=== PATIENT | male | born 1955 | race Caucasian/White ===

== ENCOUNTER 2019-09-12 13:04 | Inpatient (IN) ==
[2019-09-12] MEDS ORDERED: NORMAL SALINE 1,000 ML IV ONE (13:20)
[2019-09-12] MEDS ORDERED: PROCHLORPERAZINE EDISYLATE 5 MG/ML VIAL IV ONE (13:20)
--- NOTE | 2019-09-12 13:21 | ERNOTE ---
Medical Problem HPI - Narrative Date of Service: 09/12/19 - General Chief Complaint: Nausea/Vomiting Time Seen by Provider: 09/12/19 13:13 Source: patient, RN notes reviewed, old records Exam Limitations: intoxication - Immun/Allergies/Home Medications Immunizations: IMMUNIZATION HX Immunizations Up to Date Yes History of Influenza Vaccine No Hx Pneumococcal Vaccination No Allergies/Adverse Reactions: Allergies lorazepam [From Ativan] Adverse Reaction (Verified 08/04/19 11:01) Runs around [place] naked Home Medications: HOME MEDICATIONS Sertraline HCl [Zoloft] 100 mg PO DAILY 03/20/19 [Last Taken Unknown] Omeprazole [Prilosec] 20 mg PO DAILY #30 cap 08/04/19 [Last Taken Unknown] Ondansetron [Zofran Odt] 4 mg PO Q8H PRN #20 tab 08/04/19 [Last Taken Unknown] Potassium Chloride 8 meq PO DAILY #30 cap 08/04/19 [Last Taken Unknown] - History of Present History Narrative: Omar is a 63-year-old male brought to the emergency department from home by his mother for vomiting. This has been going on for 2 or 3 days. He has a history of alcoholism and reports that he has been drinking today. He reports that he usually drinks 12-18 beers per day. He has a history of esophageal varices. He vomited on the floor in the waiting room on arrival. This was brown in color. He reports that he had tried to drink tea this morning. He has been seen several times in the past few months for similar complaints. Review of Systems - Narrative Narrative: Unable to obtain ROS due to patient condition and intoxication Medical History (Last Reviewed 09/12/19 @ 14:45 by Sana Sapp NP) Alcoholic Esophageal varices Surgical History: Surgical History (Last Reviewed 09/12/19 @ 14:45 by Sana Sapp NP) H/O shoulder surgery H/O wisdom tooth extraction History of hip surgery Family History: Family History (Last Reviewed 09/12/19 @ 14:45 by Sana Sapp NP) Other No pertinent family history Social History: (Last Reviewed 09/12/19 @ 14:45 by Sana Sapp NP) Tobacco: Smoking Status: Never smoker Alcohol: alcohol intake: current Alcohol type: beer, wine alcohol intake frequency: 3 or more drinks per day Substance Use: substance use type: does not use Physical Exam - Physical Exam General Appearance: Present: alert, moderate distress, thin Head Exam: Present: normal inspection, no evidence of injury Eye Exam: Other: bilateral - Nystagmus present, no scleral icterus Ears, Nose, Throat: Present: normal except -, dry mucous membranes Neck: Present: normal inspection, nontender, supple Respiratory: Present: no respiratory distress, normal breath sounds, no accessory muscle use, lungs clear Cardiovascular/Chest: Present: no murmur, normal peripheral pulses, tachycardia Gastrointestinal/Abdominal: Present: soft, tenderness - diffuse, distended - bloated appearance Extremity Exam: Present: normal inspection, no edema Neurological Exam: Present: alert, other - tremors present. Absent: oriented, normal mood/affect Skin Exam: Present: normal color, warm/dry Progress - Results and Orders Patient's Lab Results:: I have reviewed the patient's lab results. - Vital Signs Patient's Vital Signs:: I have reviewed the patient's vital signs. Vital Signs: Vital Signs 09/12/19 13:08 Temperature 37.1 C Pulse Rate 118 H Respiratory Rate 18 Blood Pressure 155/116 H O2 Sat by Pulse Oximetry 98 - EKG EKG #1 EKG: other - Sinus tach EKG read: Reviewed by me - X-Ray X-Ray #1 X-Ray: abdomen Interpretation: Reviewed by me X-ray Comments: No acute intra-abdominal findings - Progress/Reassessment Chief Complaint: Nausea/Vomiting Progress:: Unchanged Plan - Plan Plan: The patient was initially given IV Compazine for his vomiting. He continued to vomit and was given Zofran. This seems to have helped. He has also been given a liter of normal saline. He was found to have a potassium of 2.1 and was given a potassium rider. His magnesium is 0 and he is currently receiving an infusion of 2 g of magnesium sulfate. His hemoglobin is 9.1 today. This was 14 when he was here just over a month ago. He denies having any neelima bleeding related to his esophageal varices. His liver function tests are within normal as is his ammonia level. Dr. Esquivel was contacted for admission. She agreed to admit the patient to [facility] on telemetry. Departure Clinical Impression: Hypokalemia, Hypomagnesemia with secondary hypocalcemia Intractable vomiting Qualifiers: Vomiting type: unspecified Nausea presence: with nausea Qualified Code(s): R11.2 - Nausea with vomiting, unspecified Alcoholic gastritis Qualifiers: Chronicity: unspecified Gastritis bleeding: presence of bleeding unspecified Qualified Code(s): K29.20 - Alcoholic gastritis without bleeding - Departure Disposition: Still a patient Condition: Serious Referrals: Gregg Green DO [Non Staff Physicians] -
[2019-09-12 13:57] LABS: Hematocrit 27.7 % (42.0-52.0); Hemoglobin 9.1 gm/dL (13.5-18.0); Mean Cell Volume 90.5 fl (78-100); Mean Corpuscular Hemoglobin 29.7 pg (27-31); Mean Corpuscular Hgb Conc 32.9 g/dl (32-36); Mean Platelet Volume 8.2 fl (8-11.3); Neutrophil # 4.2 K/mm3 (1.3-6.0); Platelet Count 260 K/mm3 (150-450); Red Blood Count 3.06 M/mm3 (4.7-6.0); Red Cell Distribution Width 15.8 % (11.5-14.0); White Blood Count 4.8 K/mm3 (4.0-10.5)
[2019-09-12 14:09] LABS: Albumin * 2.7 gm/dl (3.4-5.0); Anion Gap 22.5 mmol/L (6.8-13.8); BUN/Creatinine Ratio 5.9 (9.0-21.6); Bilirubin, Total 0.4 mg/dL (0.0-1.1); Ca. Corrected For Albumin 6.7 mg/dL (8.4-10.2); Carbon Dioxide 15.6 mmol/L (24-32.6); Total Protein 5.6 gm/dL (6.2-8.2)
[2019-09-12 14:15] LABS: Potassium 2.1 mmol/L (3.4-4.6)
[2019-09-12] MEDS ORDERED: POTASSIUM CHLORIDE IN WATER 100 ML IV ONE (14:19)
[2019-09-12] MEDS ORDERED: ONDANSETRON HCL/PF 2 MG/ML VIAL IV ONE (14:51)
[2019-09-12] MEDS ORDERED: MAGNESIUM SULFATE IN WATER 50 ML IV ONE ×2 (14:58→17:15)
[2019-09-12 15:32] LABS: Urine Bilirubin Negative (NEGATIVE); Urine Ketone 50 mg/dL (NEGATIVE); Urine Nitrite Negative (NEGATIVE); Urine Protein 15 mg/dL (NEGATIVE); Urine Specific Gravity 1.025 SP.GR. (1.005-1.030); Urine Urobilinogen Normal (NORMAL)
[2019-09-12 15:45] LABS: Cocaine Ur Negative (NEGATIVE); Urine Barbiturate Negative (NEGATIVE); Urine Benzodiazepines Negative (NEGATIVE); Urine Opiates Negative (NEGATIVE); Urine PCP Negative (NEGATIVE); Urine THC Negative (NEGATIVE)
[2019-09-12 15:47] LABS: Urine Appearance Clear (CLEAR); Urine Bacteria None Seen; Urine Blood 5 /ul (NEGATIVE); Urine Color Yellow; Urine RBC None Seen /hpf (0-5); Urine WBC None Seen /hpf (0-5)
--- NOTE | 2019-09-12 15:52 | HP ---
Chief Complaint - Chief Complaint Date of Service: 09/12/19 Time of Service: 15:22 Chief Complaint: Intractable vomiting x2 days History of Present Illness: 63-year-old male with a past medical history of alcohol abuse, esophageal monie ices presents from home with complaints of intractable vomiting x2 days. He states he drinks 9 beers daily and wine on top of that. He is not able to quantify the amount of wine. He states his last drink of beer was this morning around 9 or 10 AM. He has been vomiting brown liquid. He has minimal poor oral intake because he supplements food with alcohol. He lives with his mom. In the emergency department he is found to be tachycardic with heart rate of 118, sodium of 147, potassium of 2.1, magnesium of 0, hemoglobin of 9.1, hematocrit of 27.9 (last hemoglobin in August 2019 was 14.9, hematocrit was 43.3) albumin of 2.7, and abdominal x-ray showed no acute process. He received 1 rider of potassium chloride in the emergency department, 1 L of IV fluids and Compazine. He will get 2 g of magnesium sulfate while in the ER. He is being admitted for hypomagnesemia, hypokalemia, intractable vomiting, and alcoholic gastritis. Medical History (Last Reviewed 09/12/19 @ 14:45 by Sana Sapp NP) Alcoholic Esophageal varices Surgical History: Surgical History (Last Reviewed 09/12/19 @ 14:45 by Sana Sapp NP) H/O shoulder surgery H/O wisdom tooth extraction History of hip surgery Family History: Family History (Last Reviewed 09/12/19 @ 14:45 by Sana Sapp NP) Other No pertinent family history Social History: (Last Reviewed 09/12/19 @ 14:45 by Sana Sapp NP) Tobacco: Smoking Status: Never smoker Alcohol: alcohol intake: current Alcohol type: beer, wine alcohol intake frequency: 3 or more drinks per day Substance Use: substance use type: does not use Review Of Systems (GEN) - Review of Systems Generalized/Overall Review: Present: Chills. Absent: Fever Respiratory: Present: Shortness of Breath Cardiac: Present: Chest Pain Abdominal: Present: Nausea, Vomiting, Abdominal Pain - Right upper quadrant, left upper quadrant and epigastric Musculoskeletal: Present: Back Pain Misc: All systems neg except as marked Immunizations: IMMUNIZATION HX Immunizations Up to Date Yes History of Influenza Vaccine No Hx Pneumococcal Vaccination No Allergies/Adverse Reactions: Allergies Allergy/AdvReac Type Severity Reaction Status Date / Time lorazepam [From Ativan] AdvReac Verified 08/04/19 11:01 Home Medications: HOME MEDICATIONS Sertraline HCl [Zoloft] 100 mg PO DAILY 03/20/19 [Last Taken Unknown] Omeprazole [Prilosec] 20 mg PO DAILY #30 cap 08/04/19 [Last Taken Unknown] Ondansetron [Zofran Odt] 4 mg PO Q8H PRN #20 tab 08/04/19 [Last Taken Unknown] Potassium Chloride 8 meq PO DAILY #30 cap 08/04/19 [Last Taken Unknown] Exam - Exam Vital Signs: Vital Signs - Last Taken Temp 37.1 C 09/12/19 13:08 Pulse 110 H 09/12/19 13:59 Resp 15 09/12/19 13:59 BP 123/76 09/12/19 13:59 Pulse Ox 95 09/12/19 13:59 Constitutional: Present: Alert, Cooperative, Well developed, Well nourished, Middle aged ENT Exam: Present: hearing grossly normal Eye Exam: bilateral eye: normal inspection, PERRL Neck: Present: non-tender, supple. Absent: normal inspection, lymphadenopathy (L) Back Exam: Present: normal inspection, no CVA tenderness, no vertebral tenderness Respiratory: Present: lungs clear, no respiratory distress, no accessory muscle use, No wheezing. Absent: crackles, rhonchi Cardiovascular/Chest: Present: normal peripheral pulses, no murmur, tachycardia Peripheral Pulses: dorsalis-pedis (R): 1+, dorsalis-pedis (L): 1+ Abdomen: Present: Normal bowel sounds, soft, tender - Epigastric, right upper quadrant and left upper quadrant Extremity: Present: no pedal edema Skin Exam: Present: normal color, warm/dry Neurologic: Present: alert, normal mood/affect Appearance: Present: appropriate appearance, appropriate insight Eye contact: Present: cooperative Thoughts: Present: normal thought pattern, normal mood /affect Diagnostic Studies: Abnormal Lab Results 09/12/19 09/12/19 09/12/19 Range/Units 13:52 13:52 13:52 RBC 3.06 L (4.7-6.0) M/mm3 Hgb 9.1 L (13.5-18.0) gm/dL Hct 27.7 L (42.0-52.0) % RDW 15.8 H (11.5-14.0) % Neutrophils % 86.0 H (42-75.0) % Lymphocytes % 6.8 L (20-51) % Lymphocytes # 0.33 L (1.5-3.5) k/mm3 Sodium 147 H (132-142) mmol/L Plasma Sodium 147 H (130-142) mmol/L Potassium 2.1 L* D (3.4-4.6) mmol/L Chloride 111 H (97-106) mmol/L Carbon Dioxide 15.6 L (24-32.6) mmol/L Anion Gap 22.5 H (6.8-13.8) mmol/L BUN 4 L D (6-23) mg/dL BUN/Creatinine Ratio 5.9 L (9.0-21.6) Calcium 6.0 L (7.9-10.9) mg/dL Calcium Adj for Albumin 6.7 L (8.4-10.2) mg/dL Magnesium 0.0 L (1.2-2.8) mg/dL ALT 14 L (19-67) U/L Total Protein 5.6 L (6.2-8.2) gm/dL Albumin 2.7 L (3.4-5.0) gm/dl Lipase 63 L (73-393) U/L Ethyl Alcohol 89.0 H (0.0-10.0) mg/dL Laboratory Results WBC 4.8 K/mm3 (4.0-10.5) 09/12/19 13:52 RBC 3.06 M/mm3 (4.7-6.0) L 09/12/19 13:52 Hgb 9.1 gm/dL (13.5-18.0) L 09/12/19 13:52 Hct 27.7 % (42.0-52.0) L 09/12/19 13:52 MCV 90.5 fl (78-100) 09/12/19 13:52 MCH 29.7 pg (27-31) 09/12/19 13:52 MCHC 32.9 g/dl (32-36) 09/12/19 13:52 RDW 15.8 % (11.5-14.0) H 09/12/19 13:52 Plt Count 260 K/mm3 (150-450) 09/12/19 13:52 MPV 8.2 fl (8-11.3) 09/12/19 13:52 Immature Gran % (Auto) 0.20 % (0.001-0.429) 09/12/19 13:52 Immature Gran # (Auto) 0.01 K/mm3 (0.000-0.0310) 09/12/19 13:52 Neutrophils % 86.0 % (42-75.0) H 09/12/19 13:52 Lymphocytes % 6.8 % (20-51) L 09/12/19 13:52 Monocytes % 6.4 % (0.0-9) 09/12/19 13:52 Eosinophils % 0.0 % (0.0-3.0) 09/12/19 13:52 Basophils % 0.6 % (0.0-1.0) 09/12/19 13:52 Nucleated RBC % 0.0 k/mm3 (0-1) 09/12/19 13:52 Neutrophils # 4.2 K/mm3 (1.3-6.0) 09/12/19 13:52 Lymphocytes # 0.33 k/mm3 (1.5-3.5) L 09/12/19 13:52 Monocytes # 0.3 k/mm3 (0.0-1.0) 09/12/19 13:52 Eosinophils # 0.0 k/mm3 (0.0-0.7) 09/12/19 13:52 Absolute Basophils 0.0 k/mm3 (0.0-0.1) 09/12/19 13:52 Sodium 147 mmol/L (132-142) H 09/12/19 13:52 Plasma Sodium 147 mmol/L (130-142) H 09/12/19 13:52 Potassium 2.1 mmol/L (3.4-4.6) L* D 09/12/19 13:52 Chloride 111 mmol/L (97-106) H 09/12/19 13:52 Carbon Dioxide 15.6 mmol/L (24-32.6) L 09/12/19 13:52 Anion Gap 22.5 mmol/L (6.8-13.8) H 09/12/19 13:52 BUN 4 mg/dL (6-23) L D 09/12/19 13:52 Creatinine 0.68 mg/dL (0.4-1.4) 09/12/19 13:52 Est GFR (Non-Af Amer) 126 mL/min (60-130) D 09/12/19 13:52 BUN/Creatinine Ratio 5.9 (9.0-21.6) L 09/12/19 13:52 Random Glucose 89 mg/dL (70-110) 09/12/19 13:52 Calcium 6.0 mg/dL (7.9-10.9) L 09/12/19 13:52 Calcium Adj for Albumin 6.7 mg/dL (8.4-10.2) L 09/12/19 13:52 Magnesium 0.0 mg/dL (1.2-2.8) L 09/12/19 13:52 Total Bilirubin 0.4 mg/dL (0.0-1.1) 09/12/19 13:52 AST 31 U/L (0-48) 09/12/19 13:52 ALT 14 U/L (19-67) L 09/12/19 13:52 Alkaline Phosphatase 63 U/L (50-170) 09/12/19 13:52 Ammonia 22.0 mcmol/L (11-35) 09/12/19 14:38 Total Protein 5.6 gm/dL (6.2-8.2) L 09/12/19 13:52 Albumin 2.7 gm/dl (3.4-5.0) L 09/12/19 13:52 Amylase 57 U/L (25-115) 09/12/19 13:52 Lipase 63 U/L (73-393) L 09/12/19 13:52 Ethyl Alcohol 89.0 mg/dL (0.0-10.0) H 09/12/19 13:52 Assessment/Plan - Narrative Narrative: 63-year-old male with a past medical history of alcohol abuse, esophageal varices presents from home with complaints of intractable vomiting x2 days. He states he drinks 9 beers daily and wine on top of that. He is not able to quantify the amount of wine. He states his last drink of beer was this morning around 9 or 10 AM. He has been vomiting brown liquid. He has minimal poor oral intake because he supplements food with alcohol. He lives with his mom. In the emergency department he is found to be tachycardic with heart rate of 118, sodium of 147, potassium of 2.1, magnesium of 0, hemoglobin of 9.1, hematocrit of 27.9 (last hemoglobin in August 2019 was 14.9, hematocrit was 43.3) albumin of 2.7, and abdominal x-ray showed no acute process. He received 1 rider of potassium chloride in the emergency department, 1 L of IV fluids and Compazine. He will get 2 g of magnesium sulfate while in the ER. He is being admitted for hypomagnesemia, hypokalemia, intractable vomiting, and alcoholic gastritis. Plan #1 replete magnesium as needed. He will likely need 4-8 g in the next 24 hours. #2 replete potassium as needed #3 CBC and CMP in the morning #4 Keep n.p.o. until nausea and vomiting have improved #5 monitor for alcohol withdrawal - Assessment/Plan (1) Intractable vomiting Problem: Acute Qualifiers: Vomiting type: unspecified Nausea presence: with nausea Qualified Code(s): R11.2 - Nausea with vomiting, unspecified (2) Alcoholic gastritis Problem: Acute Qualifiers: Chronicity: unspecified Gastritis bleeding: presence of bleeding unspecified Qualified Code(s): K29.20 - Alcoholic gastritis without bleeding (3) Hypokalemia Problem: Acute (4) Hypomagnesemia with secondary hypocalcemia Problem: Acute
[2019-09-12] MEDS: chlordiazePOXIDE HCL 25 MG CAPSULE PO SCH ×2 (17:13→23:05)
[2019-09-12] MEDS: POTASSIUM CHLORIDE IN WATER 100 ML IV SCH ×4 (17:34→20:56)
[2019-09-12] MEDS: ONDANSETRON 4 MG TAB.RAPDIS PO PRN (18:06)
[2019-09-13] MEDS: ONDANSETRON 4 MG TAB.RAPDIS PO PRN (02:49)
[2019-09-13] MEDS: chlordiazePOXIDE HCL 25 MG CAPSULE PO SCH ×2 (04:57→10:21)
[2019-09-13 06:35] LABS: Hemoglobin 14.6 gm/dL (13.5-18.0); Mean Cell Volume 89.6 fl (78-100); Mean Corpuscular Hemoglobin 29.1 pg (27-31); Mean Corpuscular Hgb Conc 32.4 g/dl (32-36); Mean Platelet Volume 8.4 fl (8-11.3); Neutrophil # 5.9 K/mm3 (1.3-6.0); Neutrophil % 76.2 % (42-75.0); Platelet Count 407 K/mm3 (150-450); Red Blood Count 5.02 M/mm3 (4.7-6.0); Red Cell Distribution Width 15.9 % (11.5-14.0); White Blood Count 7.8 K/mm3 (4.0-10.5)
[2019-09-13 06:46] LABS: Albumin * 4.1 gm/dl (3.4-5.0); Anion Gap 14.2 mmol/L (6.8-13.8); BUN/Creatinine Ratio 5.1 (9.0-21.6); Bilirubin, Total 1.4 mg/dL (0.0-1.1); Ca. Corrected For Albumin 8.9 mg/dL (8.4-10.2); Calcium * 9.3 mg/dL (7.9-10.9); Carbon Dioxide 27.5 mmol/L (24-32.6); Magnesium 2.6 mg/dL (1.2-2.8); Potassium 3.7 mmol/L (3.4-4.6); Total Protein 8.8 gm/dL (6.2-8.2)
[2019-09-13] MEDS ORDERED: LISINOPRIL 10 MG TABLET PO SCH (10:15)
--- NOTE | 2019-09-13 11:26 | DS ---
(1) Intractable vomiting Problem: Acute Qualifiers: Vomiting type: unspecified Nausea presence: with nausea Qualified Code(s): R11.2 - Nausea with vomiting, unspecified (2) Alcoholic gastritis Problem: Acute Qualifiers: Chronicity: unspecified Gastritis bleeding: presence of bleeding unspecified Qualified Code(s): K29.20 - Alcoholic gastritis without bleeding (3) Hypokalemia Problem: Acute (4) Hypomagnesemia with secondary hypocalcemia Problem: Acute (5) Alcohol withdrawal Problem: Acute Qualifiers: Complication of substance-induced condition: uncomplicated Qualified Code(s): F10.230 - Alcohol dependence with withdrawal, uncomplicated (6) Alcohol abuse Problem: Chronic Hospital Course: 63-year-old male with a past medical history of alcohol abuse, esophageal varices presents from home with complaints of intractable vomiting x2 days. He states he drinks 9 beers daily and wine on top of that. He is not able to quantify the amount of wine. He states his last drink of beer was this morning around 9 or 10 AM. He has been vomiting brown liquid. He has minimal poor oral intake because he supplements food with alcohol. He lives with his mom. In the emergency department he is found to be tachycardic with heart rate of 118, sodium of 147, potassium of 2.1, magnesium of 0, hemoglobin of 9.1, hematocrit of 27.9 (last hemoglobin in August 2019 was 14.9, hematocrit was 43.3) albumin of 2.7, and abdominal x-ray showed no acute process. He received 1 rider of potass ium chloride in the emergency department, 1 L of IV fluids and Compazine. He will get 2 g of magnesium sulfate while in the ER. He is being admitted for hypomagnesemia, hypokalemia, intractable vomiting, and alcoholic gastritis. With repletion, his potassium improved to 3.7 and magnesium improved to 2.6. His CIWA score dropped from 14 to 2 with Librium. He is tolerating oral diet. He has no more nausea and vomiting. He is stable to be discharged home today because he improved faster than anticipated. He will need to follow-up with his primary care physician within 1 week. Advised on the importance of reducing alcohol intake. Procedures Performed: none Results and Findings: Lab Pending Results 09/12/19 13:52: WBC 4.8, RBC 3.06 L, Hgb 9.1 L, Hct 27.7 L, MCV 90.5, MCH 29.7, MCHC 32.9, RDW 15.8 H, Plt Count 260, MPV 8.2, Immature Gran % (Auto) 0.20, Immature Gran # (Auto) 0.01, Neutrophils % 86.0 H, Lymphocytes % 6.8 L, Monocytes % 6.4, Eosinophils % 0.0, Basophils % 0.6, Nucleated RBC % 0.0, Neutrophils # 4.2, Lymphocytes # 0.33 L, Monocytes # 0.3, Eosinophils # 0.0, Absolute Basophils 0.0 09/12/19 13:52: Sodium 147 H, Plasma Sodium 147 H, Potassium 2.1 L* D, Chloride 111 H, Carbon Dioxide 15.6 L, Anion Gap 22.5 H, BUN 4 L D, Creatinine 0.68, Est GFR (Non-Af Amer) 126 D, BUN/Creatinine Ratio 5.9 L, Random Glucose 89, Calcium 6.0 L, Calcium Adj for Albumin 6.7 L, Total Bilirubin 0.4, AST 31, ALT 14 L, Alkaline Phosphatase 63, Total Protein 5.6 L, Albumin 2.7 L, Amylase 57, Lipase 63 L, Ethyl Alcohol 89.0 H 09/12/19 13:52: Magnesium 0.0 L 09/12/19 14:38: Ammonia 22.0 09/12/19 15:18: Urine Color Yellow, Urine Appearance Clear, Urine pH 6.0, Ur Specific [place] 1.025, Urine Protein 15 H, Urine Glucose (UA) Negative, Urine Ketones 50, Urine Blood 5 H, Urine Nitrate Negative, Urine Bilirubin Negative, Prot Sulfosalicylic Acd Negative, Urine Urobilinogen Normal, Ur Leukocyte Esterase Negative, Urine RBC None seen, Urine WBC None seen, Ur Epithelial Cells None seen, Urine Bacteria None seen, Urine Culture Comments No culture indicated 09/12/19 15:18: Urine Opiates Screen Negative, Barbiturate Screen Negative, Ur Phencyclidine Scrn Negative, Urine Amphetamine Negative, U Benzodiazepines Scrn Negative, Urine Cocaine Screen Negative, Urine Marijuana (THC) Negative 09/13/19 06:28: Sodium 138, Plasma Sodium 138, Potassium 3.7 D, Chloride 100, Carbon Dioxide 27.5, Anion Gap 14.2 H, BUN 5 L, Creatinine 0.98, Est GFR (Non-Af Amer) 83 D, BUN/Creatinine Ratio 5.1 L, Random Glucose 92, Calcium 9.3, Calcium Adj for Albumin 8.9, Magnesium 2.6, Total Bilirubin 1.4 H, AST 49 H, ALT 28, Alkaline Phosphatase 97, Total Protein 8.8 H, Albumin 4.1 09/13/19 06:28: WBC 7.8 D, RBC 5.02, Hgb 14.6, Hct 45.0, MCV 89.6, MCH 29.1, MCHC 32.4, RDW 15.9 H, Plt Count 407, MPV 8.4, Immature Gran % (Auto) 0.30, Immature Gran # (Auto) 0.02, Neutrophils % 76.2 H, Lymphocytes % 12.7 L, Monocytes % 10.0 H, Eosinophils % 0.5, Basophils % 0.3, Nucleated RBC % 0.0, Neutrophils # 5.9, Lymphocytes # 0.99 L, Monocytes # 0.8, Eosinophils # 0.0, Absolute Basophils 0.0 Discharge Location: Home Disposition: Home self-care Condition: Stable Discharge Activity: Activity as tolerated Discharge Diet: General/regular food Referrals: Shant Hardwick MD [Primary Care Provider] - Prescriptions (Any new or edited meds): Lisinopril [Zestril] 10 mg PO DAILY #30 tab Transmission Status: Pending to [id number] Complete Home Medications List: Complete Home Medication List: Sertraline HCl [Zoloft] 100 mg PO DAILY 03/20/19 Omeprazole [Prilosec] 20 mg PO DAILY #30 cap 08/04/19 Ondansetron [Zofran Odt] 4 mg PO Q8H PRN #20 tab 08/04/19 Potassium Chloride 8 meq PO DAILY #30 cap 08/04/19 Lisinopril [Zestril] 10 mg PO DAILY #30 tab 09/13/19
[2019-09-13 13:33] VITALS: BP 108/78
== END 2019-09-13 14:10 | disposition home or self-care (01) | DRG 392 ==
LOC: ER 13:04 → MS 15:31
PROVIDERS: ADMIT Internal Medicine; ATTEND Internal Medicine
CPT/HCPCS: 36415; 74019; 74020; 80053; 80307; 81001; 82140; 82150; 83690; 83735; 85025; 93005; 96365; 96375; 99284; 99285; J2405